=== PATIENT | female | born 1985 | race Caucasian/White ===

== ENCOUNTER 2018-06-28 15:14 | Outpatient (CLI) | payer MEDICARE, MEDICAID | END 2018-06-28 15:15 | disposition critical access hospital (66) | LOC: EMS 15:14 | PROVIDERS: ATTEND Surgery | DX: R45.851 Suicidal ideations (principal) | CPT/HCPCS: A0425; A0429 ==

== ENCOUNTER 2018-06-28 15:34 | Inpatient (IN) | payer MEDICARE, MEDICAID ==
--- NOTE | 2018-06-28 16:01 | ED Physician Documentation ---
PD HPI MHE - Stated complaint Stated Complaint: SI - Chief complaint Chief Complaint: MHE - History obtained from History obtained from: Patient - History of Present Illness Primary symptom: Other (off balance, nausea, weakness, falling) Timing - onset: How many days ago (2-3) Contributing factors: No: Substance abuse - ETOH, Substance abuse - drugs Recently seen: Clinic (saw her psychiatrist earlier in the week and took dose of Risperdal, which she has as PRN, and it helped her psychosis and is feeling better regarding the bipolar. Had seen provider 3 weeks and and started n [place]. She has been taking it regularly.), Emergency Dept (seen at [facility] yesterday with IV fluids and labs. She was some improved with IV fluids. Labs were okay and lithium level was 0.6. Discharged but did not have instructions to hold her meds/lithium dose.) Review of Systems Constitutional: denies: Fever, Chills Nose: denies: Rhinorrhea / runny nose, Congestion Throat: denies: Sore throat Respiratory: denies: Cough GI: reports: Abdominal Pain, Nausea, Diarrhea. denies: Vomiting Musculoskeletal: denies: Neck pain, Back pain Neurologic: reports: Generalized weakness. denies: Focal weakness, Numbness Psychiatric: reports: Depressed, Anxiety. denies: Suicidal, Delusions Endocrine: denies: Weight loss Immunocompromised: denies: Immunocompromised PD PAST MEDICAL HISTORY - Past Medical History Cardiovascular: None Respiratory: None Neuro: Seizure disorder Endocrine/Autoimmune: None GI: None [employer]: None Psych: Anxiety, Bipolar disorder - Past Surgical History Past Surgical History: Yes General: Cholecystectomy - Present Medications Home Medications: Ambulatory Orders Medication Instructions Recorded Confirmed Lorazepam [Ativan] 1 mg PO Q8H #14 tablet 04/17/14 10/08/14 Gabapentin 400 mg PO 06/28/18 Levetiracetam [Keppra] 750 mg PO BID 06/28/18 06/28/18 [place] Carbonate 900 06/28/18 Naltrexone HCl 75 06/28/18 Propranolol [Inderal] 10 mg PO DAILY 06/28/18 06/28/18 Zolpidem Tartrate [Ambien] 10 mg PO 06/28/18 clonazePAM [Clonazepam] 2 mg PO 06/28/18 hydrOXYzine HCl [Hydroxyzine HCl] 10 mg PO PRN 06/28/18 - Allergies Allergies/Adverse Reactions: Allergies Allergy/AdvReac Type Severity Reaction Status Date / Time amitriptyline Allergy Hallucinati Verified 06/28/18 15:43 ons quetiapine [From Seroquel] Allergy Hallucinati Verified 06/28/18 15:43 ons Penicillins AdvReac Unknown Hives Verified 05/02/13 20:19 Sulfa (Sulfonamide AdvReac Unknown Hives Verified 05/02/13 20:19 Antibiotics) Whole grains AdvReac Unknown Uncoded 04/14/14 10:47 - Social History Does the pt smoke?: Yes Smoking Status: Current every day smoker Does the pt drink ETOH?: Yes Does the pt have substance abuse?: Yes - Immunizations Immunizations are current?: Yes Immunizations: TDAP current <10years - POLST Patient has POLST: No PD ED PE NORMAL - Vitals Vital signs reviewed: Yes - General General: Alert and oriented X 3, Well developed/nourished - HEENT HEENT: PERRL, EOMI (mild rotary nystagmus), Pharynx benign. No: Moist mucous membranes - Neck Neck: Supple, no meningeal sign, No adenopathy, No JVD, No bruit - Cardiac Cardiac: RRR, No murmur - Respiratory Respiratory: Clear bilaterally - Abdomen Abdomen: Normal bowel sounds, Soft, Non distended, No organomegaly, Other (mild general tenderness) - Back Back: No CVA TTP - Derm Derm: Normal color, Warm and dry - Extremities Extremities: No tenderness to palpate, Normal ROM s pain, No edema, No calf tenderness / cord - Neuro Neuro: Alert and oriented X 3, No sensory deficit, Normal speech, Other (moderate general weakness, more in legs than arms. ) Results - Vitals Vitals: Vital Signs - 24 hr 06/28/18 15:37 Temperature 36.8 C Heart Rate 85 Blood Pressure 117/76 O2 Saturation 99 Oxygen O2 Source Room air - Labs Labs: Laboratory Tests 06/28/18 06/28/18 06/28/18 15:56 15:56 15:56 WBC 9.6 RBC 3.88 L Hgb 11.3 L Hct 33.1 L MCV 85.2 MCH 29.0 MCHC 34.1 RDW 16.7 H Plt Count 266 MPV 8.3 Neut # (Auto) 5.1 Lymph # (Auto) 3.0 [place] # (Auto) 0.8 Eos # (Auto) 0.7 Baso # (Auto) 0.1 Absolute Nucleated RBC 0.00 Nucleated RBC % 0.0 Sodium 138 Potassium 3.4 L Chloride 107 Carbon Dioxide 23 Anion Gap 8.0 BUN < 5 L Creatinine 0.7 Estimated GFR (MDRD) 96 Glucose 92 Calcium 8.9 Total Bilirubin 0.6 AST 22 ALT 16 Alkaline Phosphatase 74 Total Protein 6.6 L Albumin 3.9 Globulin 2.7 Albumin/Globulin Ratio 1.4 Lipase 44 TSH Urine Color Urine Clarity Urine pH Ur Specific [place] Urine Protein Urine Glucose (UA) Urine Ketones Urine Occult Blood Urine Nitrite Urine Bilirubin Urine Urobilinogen Ur Leukocyte Esterase Ur Microscopic Review Urine Culture Comments Urine HCG, Qual Last Dose Date UNK Last Dose Time UNK Salicylates < 6.0 Urine Opiates Screen Ur Oxycodone Screen Urine Methadone Screen Ur Propoxyphene Screen Acetaminophen < 10 L Ur Barbiturates Screen Ur Tricyclics Screen Ur Phencyclidine Scrn Ur Amphetamine Screen U Methamphetamines Scrn U Benzodiazepines Scrn [place] 0.72 Urine Cocaine Screen U Cannabinoids Screen Ethyl Alcohol < 5.0 06/28/18 06/28/18 06/28/18 15:56 16:10 16:10 WBC RBC Hgb Hct MCV MCH MCHC RDW Plt Count MPV Neut # (Auto) Lymph # (Auto) [place] # (Auto) Eos # (Auto) Baso # (Auto) Absolute Nucleated RBC Nucleated RBC % Sodium Potassium Chloride Carbon Dioxide Anion Gap BUN Creatinine Estimated GFR (MDRD) Glucose Calcium Total Bilirubin AST ALT Alkaline Phosphatase Total Protein Albumin Globulin Albumin/Globulin Ratio Lipase TSH 3.11 Urine Color YELLOW Urine Clarity CLEAR Urine pH 6.0 Ur Specific [place] <=1.005 <=1.005 Urine Protein NEGATIVE Urine Glucose (UA) NEGATIVE Urine Ketones NEGATIVE Urine Occult Blood NEGATIVE Urine Nitrite NEGATIVE Urine Bilirubin NEGATIVE Urine Urobilinogen 0.2 (NORMAL) Ur Leukocyte Esterase NEGATIVE Ur Microscopic Review NOT INDICATED Urine Culture Comments NOT INDICATED Urine HCG, Qual NEGATIVE Last Dose Date Last Dose Time Salicylates Urine Opiates Screen NEGATIVE Ur Oxycodone Screen POSITIVE H Urine Methadone Screen NEGATIVE Ur Propoxyphene Screen NEGATIVE Acetaminophen Ur Barbiturates Screen NEGATIVE Ur Tricyclics Screen NEGATIVE Ur Phencyclidine Scrn NEGATIVE Ur Amphetamine Screen NEGATIVE U Methamphetamines Scrn NEGATIVE U Benzodiazepines Scrn POSITIVE H [place] Urine Cocaine Screen NEGATIVE U Cannabinoids Screen NEGATIVE Ethyl Alcohol PD MEDICAL DECISION MAKING - ED course Complexity details: reviewed results (her lithium level is in normal range, but is higher than at [facility] yesterday, so accounts for worse symptoms today.), re- evaluated patient (Feeling a little bit better with IV fluids but still he is having general weakness and nausea and has weakness of enough that she is having difficulty standing or walking. Her symptoms seem consistent with lithium toxicity. The symptoms certainly can compound with other medications that she takes but the lithium for the past 3 weeks is the new kid on the block and presumably is accounting for her symptoms.), considered differential (Sounds like medication side effects. Has been on lithium for 3 weeks, and also had added dose of psych meds earlier this week. Other meds the same. Symptoms c/w lithium toxicity. My concern is that she is weak and off balance, and fell with even walking to bathroom, with multiple falls today per dad. Her lithium level is .72 and yesterday was .6 at [facility] (was not told to hold her med so took it as usual last night). This not typical toxic level, but can be symptoms combined with other meds. I feel she needs hydration and off meds for a day and see if improved, then resume lower dose currently 900 mg bid). ), d/w patient - Sepsis Event Vital Signs: Vital Signs - 24 hr 06/28/18 15:37 Temperature 36.8 C Heart Rate 85 Blood Pressure 117/76 O2 Saturation 99 Oxygen O2 Source Room air Departure - Departure Disposition: ED Place in Observation Clinical Impression: Falling episodes, Seizure disorder [place] toxicity Qualifiers: Encounter type: initial encounter Injury intent: accidental or unintentional Qualified Code(s): T56.891A - Toxic effect of other metals, accidental (unintentional), initial encounter Bipolar disorder Qualifiers: Active/Remission status: in full remission Most recent bipolar episode type: mixed Qualified Code(s): F31.78 - Bipolar disorder, in full remission, most recent episode mixed Condition: Stable Record reviewed to determine appropriate education?: Yes Discharge Date/Time: 06/28/18 19:36
[2018-06-28 16:02] LABS: BASOPHILS # (AUTO) 0.1 10^3/uL (0.0-0.1); BASOPHILS % (AUTO) 0.7 %; EOSINOPHILS # (AUTO) 0.7 10^3/uL (0.0-0.7); EOSINOPHILS % (AUTO) 7.5 %; HGB - HEMOGLOBIN 11.3 g/dL (12.0-16.0); MEAN CORPUSCULAR HGB CONC 34.1 g/dL (32.0-36.0); MEAN CORPUSCULAR VOLUME 85.2 fL (81.0-99.0); MEAN PLATELET VOLUME 8.3 fL (7.9-10.8); MONOCYTES # (AUTO) 0.8 10^3/uL (0.0-1.0); MONOCYTES % (AUTO) 7.9 %; NEUTROPHILS # (AUTO) 5.1 10^3/uL (1.5-6.6); NEUTROPHILS % (AUTO) 52.9 %; PLT - PLATELET COUNT 266 10^3/uL (130-450); RED BLOOD COUNT 3.88 10^6/uL (4.20-5.40); RED CELL DISTRIBUTION WIDTH 16.7 % (12.0-15.0); WHITE BLOOD COUNT 9.6 x10^3/uL (4.8-10.8)
[2018-06-28 16:16] LABS: MUDS CUTOFF CONCENTRATIONS CUTOFF CONC BELOW:
[2018-06-28 16:18] LABS: BILIRUBIN,URINE NEGATIVE (NEGATIVE); GLUCOSE, URINE (UA) NEGATIVE (NEGATIVE); KETONES,URINE (UA) NEGATIVE (NEGATIVE); LEUKOCYTE ESTERASE, URINE NEGATIVE (NEGATIVE); NITRITE,URINE NEGATIVE (NEGATIVE); OCCULT BLOOD,URINE NEGATIVE (NEGATIVE); PROTEIN,URINE NEGATIVE (NEGATIVE); UROBILINOGEN,URINE 0.2 (NORMAL) E.U./dL (NORMAL)
[2018-06-28 16:18] LABS: ALBUMIN 3.9 g/dL (3.2-5.5); ALBUMIN/GLOBULIN RATIO 1.4 (1.0-2.2); ALKALINE PHOSPHATASE 74 IU/L (42-121); ALT ALANINE AMINOTRANSFERASE 16 IU/L (10-60); AST ASPARTATE AMINOTRANSFERASE 22 IU/L (10-42); BILIRUBIN,TOTAL 0.6 mg/dL (0.2-1.0); BUN - BLOOD UREA NITROGEN < 5 mg/dL (6-20); CALCIUM 8.9 mg/dL (8.5-10.3); CARBON DIOXIDE - CO2 23 mmol/L (21-32); CHLORIDE 107 mmol/L (101-111); CREATININE 0.7 mg/dL (0.4-1.0); GFR - MDRD 96 (>89); GLUCOSE 92 mg/dL (70-100); LIPASE 44 U/L (22-51); SALICYLATE < 6.0 mg/dL; SODIUM 138 mmol/L (135-145); TOTAL PROTEIN 6.6 g/dL (6.7-8.2)
[2018-06-28 16:19] LABS: LITHIUM 0.72 mmol/L
[2018-06-28 16:20] LABS: ACETAMINOPHEN < 10 ug/mL (10-30)
[2018-06-28 16:30] LABS: CLARITY,URINE CLEAR (CLEAR)
[2018-06-28 16:31] LABS: AMPHETAMINE SCREEN,URINE NEGATIVE (NEGATIVE); BENZODIAZEPINES SCREEN, URINE POSITIVE (NEGATIVE); COCAINE SCREEN URINE NEGATIVE (NEGATIVE); METHADONE SCREEN, URINE NEGATIVE (NEGATIVE); METHAMPHETAMINES SCREEN, URINE NEGATIVE (NEGATIVE); OPIATE SCREEN, URINE NEGATIVE (NEGATIVE); OXYCODONE SCREEN, URINE POSITIVE (NEGATIVE); PROPOXYPHENE SCREEN, URINE NEGATIVE (NEGATIVE); TRICYCLIC ANTIDEPRESSANT,URINE NEGATIVE (NEGATIVE)
[2018-06-28] MEDS ORDERED: SODIUM CHLORIDE 0.9% 1,000 ML IV ONE (16:48)
[2018-06-28] MEDS ORDERED: ONDANSETRON 4 MG/2 ML VIAL IVP PRN (18:10)
[2018-06-28] MEDS ORDERED: PROCHLORPERAZINE 10 MG/2 ML VIAL IVP PRN (18:10)
[2018-06-28] MEDS ORDERED: PROMETHAZINE 25 MG/1 ML VIAL IM PRN (18:10)
[2018-06-28] MEDS ORDERED: SODIUM CHLORIDE FLUSH 0.9% 10 ML SYRINGE IVP PRN (18:10)
--- NOTE | 2018-06-28 18:45 | HISTORY & PHYSICAL EXAMINATION ---
Chief Complaint - Chief Complaint Chief Complaint: Falls History of Present Illness - Admitted From Admitted From:: Emergency department - History Obtained From Records Reviewed: Yes History obtained from: Patient and patient's father Exam Limitations: None - History of Present Illness HPI Comment/Other: Patient is a 33-year-old female with a past medical history significant for PTSD, ADHD, unspecified mood disorder and kidney stones who presents to the emergency department with 4 days of increasing falls. According to the patient and her father the patient's symptoms began 4 days ago when she began having increasing lethargy and unsteady gait. The patient states that she had been experiencing increasing episode of psychosis where she was having auditory hallucinations. She saw her psychiatrist just 4 days ago and at that time she had her lithium dose increased and was put on a higher dose of Risperdal as well as propanolol. She states that she is noticed that she began having increasing lethargy and unsteady gait after increasing these doses. The patient states that over the last 2 days she has been having multiple falls. She states that her father has caught her many of the times but over the last 2 days she has had at least 50 falls. She states that this is because she just cannot walk in a straight line and her balance seems to be off. The patient does also complain of pain in her neck over the last few days she is unsure if this was due to a fall or if it started before a fall. The patient states that over the last 3 months she has been having an gradual increase in her lithium dose due to increasing symptoms of psychosis. The patient states that currently she is not having any symptoms of psychosis but just feels like she can barely stay awake. Yesterday the patient did go to the emergency department at [facility] in [place] and was observed there. The patient was given IV fluids and was thought to have too much psych medication on board and seems to be doing better therefore where she was discharged home. Patient states that she took her normal doses of her psychiatric medication this morning and now his continue to have the symptoms. In the emergency department the patient states that she fell on her way to the bathroom and does not feel safe to go home. She states that she is worried that she is a danger to herself and her family if she continues to fall. The patient denies any suicidal ideations or any current visual or auditory hallucinations. Patient denies any headaches, blurred vision, runny nose, sore throat, nasal congestion, difficulty swallowing, chest pain, cough, fever, chills, shortness of breath, orthopnea, PND, increased lower extremity swelling, abdominal pain, nausea, vomiting, diarrhea, urinary urgency, urinary frequency, dysuria, joint pain, joint swelling, back pain, hair loss, skin rash, skin changes, polyuria, polydipsia, recent unintentional weight loss, changes in appetite, or any focal neurologic deficits. On presentation to the emergency department the patient was afebrile and all vital signs were stable. Patient underwent routine lab work which showed a slight hypokalemia but otherwise were normal. The patient's urinalysis was negative. The patient's U tox did show positive for oxycodone and benzodia zepines. The patient's lithium level was 0.72 which was in the therapeutic range. Given the patient's ongoing symptoms and her being unsafe to go home she was placed in observation for IV fluids and monitoring. History - Past Medical History Neuro: reports: Seizure disorder : reports: Kidney stones Psych: reports: Anxiety, Bipolar disorder, ADD/ADHD, Post traumatic stress disor mario, Other (Unspecified mood disorder) MRSA Hx?: No - Past Surgical History General: reports: Cholecystectomy - Family & Social History Family History: Mother: Alive and Well, Cancer (Endometrial cancer), Mental Illness (Depression), Father: Alive and Well Living arrangement: At home Living Situation: With family Social History Notes: The patient lives in [place] with her parents. She recently broke up with her fianc and her parents have taken her in. She does not have any children and she does not have a job. She does not go to school. She was previously a heavy smoker smoking 2 packs a day but has been slowly cutting down and is down to just 2 cigarettes a day. She has been smoking since her teen years. The patient was also a heavy drinker but has been sober now for 5 months. She denies any illicit drug use. - POLST Patient has POLST: No POLST Status: Full Code Meds/Allgy - Home Medications Home Medications: Ambulatory Orders Medication Instructions Recorded Confirmed Lorazepam [Ativan] 1 mg PO Q8H #14 tablet 04/17/14 10/08/14 Gabapentin 400 mg PO 06/28/18 Levetiracetam [Keppra] 750 mg PO BID 06/28/18 06/28/18 [place] Carbonate 900 06/28/18 Naltrexone HCl 75 06/28/18 Propranolol [Inderal] 10 mg PO DAILY 06/28/18 06/28/18 Zolpidem Tartrate [Ambien] 10 mg PO 06/28/18 clonazePAM [Clonazepam] 2 mg PO 06/28/18 hydrOXYzine HCl [Hydroxyzine HCl] 10 mg PO PRN 06/28/18 - Allergies Allergies/Adverse Reactions: Allergies Allergy/AdvReac Type Severity Reaction Status Date / Time amitriptyline Allergy Hallucinati Verified 06/28/18 15:43 ons quetiapine [From Seroquel] Allergy Hallucinati Verified 06/28/18 15:43 ons Penicillins AdvReac Unknown Hives Verified 05/02/13 20:19 Sulfa (Sulfonamide AdvReac Unknown Hives Verified 05/02/13 20:19 Antibiotics) Whole grains AdvReac Unknown Uncoded 04/14/14 10:47 Review of Systems - Other Findings Other Findings: A comprehensive review of systems was performed the pertinent positives and negatives are stated above in the HPI and the remainder of the review of systems is negative. Prior Level of Functionality: Patient is independent with all her activities of daily living. Exam - Vital Signs Reviewed Vital Signs: Yes Vital Signs: Vital Signs x48h Temp Pulse BP Pulse Ox 06/28/18 15:37 36.8 C 85 117/76 99 - Physical Exam General Appearance: positive: No acute distress, Other (Very drowsy and lethargic. She falls asleep at times when being asked questions. She cannot move her neck from side to side appears to have spasms.) Eyes Bilateral: positive: Normal inspection, PERRL, EOMI, No lid inflammation, Conjunctivae nml, No scleral icterus ENT: positive: ENT inspection nml, Pharynx nml, No signs of dehydration. negative: Purulent nasal drainage, Pharyngeal erythema, Oral lesions Neck: positive: Nml inspection, Thyroid nml, No JVD, Trachea midline, Stiff neck. negative: Thyromegaly, Lymphadenopathy (R), Lymphadenopathy (L), Carotid bruit Respiratory: positive: Chest non-tender, No respiratory distress, Breath sounds nml. negative: Wheezes, Rales, Rhonchi Cardiovascular: positive: Regular rate & rhythm, No murmur, No gallop Peripheral Pulses: positive: 2+ Abdomen: positive: Non-tender, No organomegaly, Nml bowel sounds, No distention. negative: Guarding, Rebound, Hepatomegaly Back: positive: Nml inspection. negative: CVA tenderness (R), CVA tenderness (L) Skin: positive: Color nml, No rash, Warm, Dry. negative: Cyanosis, Diaphoresis, Pallor Extremities: positive: Non-tender, Full ROM, Nml appearance, No pedal edema Neurologic/Psychiatric: positive: Oriented x3, CN's nml (2-12), Motor nml, Sensation nml, Mood/affect nml, Other (Drowsy) Conclusion/Plan - Problem List (1) Falling episodes Conclusion/Plan: Patient has been having multiple falls according to her 49 in the last 2 days. She is lethargic and has an unsteady gait. It appears this is due to oversedation from her psychiatric medications. The patient had her doses of lithium, Risperdal and propranolol all increased about 4 days ago at which time she began having the symptoms and they have been worsening over the last 2 days. Currently the patient is unsafe to go home due to inability to walk even to the bathroom without falling. The patient is being placed in observation for IV flu ids and monitoring of symptoms. 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 The patient however appears to be lethargic due to her psychiatric medications. For now we will hold the patient's Risperdal, propranolol and lithium. We will continue the patient's clonazepam which she has been taking chronically. Once patient's mentation is improved we will then restart the lithium at a lower dose. The patient will need to follow- up with her psychiatrist for further adjustment of her doses. (3) Neck muscle spasm Conclusion/Plan: Patient appears to have spasm of her neck. This is likely secondary to 1 of the multiple falls that she suffered over the last 2 days. The patient will be given a heating pad for her neck and Toradol IV. We will consider a muscle relaxant if the patient's more alert tomorrow. (4) Seizure disorder Conclusion/Plan: Patient has a history of seizure disorder and is on Keppra. We will continue the patient's home dose of Keppra. The patient is also on gabapentin for seizure disorder which we will also continue. - Lab Results Lab results reviewed: Yes Fish Bones: 06/28/18 15:56 06/28/18 15:56 Other Lab Results: Laboratory Results WBC 9.6 x10^3/uL (4.8-10.8) 06/28/18 15:56 RBC 3.88 10^6/uL (4.20-5.40) L 06/28/18 15:56 Hgb 11.3 g/dL (12.0-16.0) L 06/28/18 15:56 Hct 33.1 % (37.0-47.0) L 06/28/18 15:56 MCV 85.2 fL (81.0-99.0) 06/28/18 15:56 MCH 29.0 pg (27.0-31.0) 06/28/18 15:56 MCHC 34.1 g/dL (32.0-36.0) 06/28/18 15:56 RDW 16.7 % (12.0-15.0) H 06/28/18 15:56 Plt Count 266 10^3/uL (130-450) 06/28/18 15:56 MPV 8.3 fL (7.9-10.8) 06/28/18 15:56 Neut # (Auto) 5.1 10^3/uL (1.5-6.6) 06/28/18 15:56 Lymph # (Auto) 3.0 10^3/uL (1.5-3.5) 06/28/18 15:56 [place] # (Auto) 0.8 10^3/uL (0.0-1.0) 06/28/18 15:56 Eos # (Auto) 0.7 10^3/uL (0.0-0.7) 06/28/18 15:56 Baso # (Auto) 0.1 10^3/uL (0.0-0.1) 06/28/18 15:56 Absolute Nucleated RBC 0.00 x10^3/uL 06/28/18 15:56 Nucleated RBC % 0.0 /100WBC 06/28/18 15:56 Sodium 138 mmol/L (135-145) 06/28/18 15:56 Potassium 3.4 mmol/L (3.5-5.0) L 06/28/18 15:56 Chloride 107 mmol/L (101-111) 06/28/18 15:56 Carbon Dioxide 23 mmol/L (21-32) 06/28/18 15:56 Anion Gap 8.0 (6-13) 06/28/18 15:56 BUN < 5 mg/dL (6-20) L 06/28/18 15:56 Creatinine 0.7 mg/dL (0.4-1.0) 06/28/18 15:56 Estimated GFR (MDRD) 96 (>89) 06/28/18 15:56 Glucose 92 mg/dL (70-100) 06/28/18 15:56 Calcium 8.9 mg/dL (8.5-10.3) 06/28/18 15:56 Total Bilirubin 0.6 mg/dL (0.2-1.0) 06/28/18 15:56 AST 22 IU/L (10-42) 06/28/18 15:56 ALT 16 IU/L (10-60) 06/28/18 15:56 Alkaline Phosphatase 74 IU/L (42-121) 06/28/18 15:56 Total Protein 6.6 g/dL (6.7-8.2) L 06/28/18 15:56 Albumin 3.9 g/dL (3.2-5.5) 06/28/18 15:56 Globulin 2.7 g/dL (2.1-4.2) 06/28/18 15:56 Albumin/Globulin Ratio 1.4 (1.0-2.2) 06/28/18 15:56 Lipase 44 U/L (22-51) 06/28/18 15:56 TSH 3.11 uIU/mL (0.34-5.60) 06/28/18 15:56 Urine Color YELLOW 06/28/18 16:10 Urine Clarity CLEAR (CLEAR) 06/28/18 16:10 Urine pH 6.0 PH (5.0-7.5) 06/28/18 16:10 Ur Specific [place] <=1.005 (1.002-1.030) 06/28/18 16:10 Urine Protein NEGATIVE mg/dL (NEGATIVE) 06/28/18 16:10 Urine Glucose (UA) NEGATIVE mg/dL (NEGATIVE) 06/28/18 16:10 Urine Ketones NEGATIVE mg/dL (NEGATIVE) 06/28/18 16:10 Urine Occult Blood NEGATIVE (NEGATIVE) 06/28/18 16:10 Urine Nitrite NEGATIVE (NEGATIVE) 06/28/18 16:10 Urine Bilirubin NEGATIVE (NEGATIVE) 06/28/18 16:10 Urine Urobilinogen 0.2 (NORMAL) E.U./dL (NORMAL) 06/28/18 16:10 Ur Leukocyte Esterase NEGATIVE (NEGATIVE) 06/28/18 16:10 Ur Microscopic Review NOT INDICATED 06/28/18 16:10 Urine Culture Comments NOT INDICATED 06/28/18 16:10 Last Dose Date UNK 06/28/18 15:56 Last Dose Time UNK 06/28/18 15:56 Salicylates < 6.0 mg/dL 06/28/18 15:56 Urine Opiates Screen NEGATIVE (NEGATIVE) 06/28/18 16:10 Ur Oxycodone Screen POSITIVE (NEGATIVE) H 06/28/18 16:10 Urine Methadone Screen NEGATIVE (NEGATIVE) 06/28/18 16:10 Ur Propoxyphene Screen NEGATIVE (NEGATIVE) 06/28/18 16:10 Acetaminophen < 10 ug/mL (10-30) L 06/28/18 15:56 Ur Barbiturates Screen NEGATIVE (NEGATIVE) 06/28/18 16:10 Ur Tricyclics Screen NEGATIVE (NEGATIVE) 06/28/18 16:10 Ur Phencyclidine Scrn NEGATIVE (NEGATIVE) 06/28/18 16:10 Ur Amphetamine Screen NEGATIVE (NEGATIVE) 06/28/18 16:10 U Methamphetamines Scrn NEGATIVE (NEGATIVE) 06/28/18 16:10 U Benzodiazepines Scrn POSITIVE (NEGATIVE) H 06/28/18 16:10 [place] 0.72 mmol/L 06/28/18 15:56 Urine Cocaine Screen NEGATIVE (NEGATIVE) 06/28/18 16:10 U Cannabinoids Screen NEGATIVE (NEGATIVE) 06/28/18 16:10 Ethyl Alcohol < 5.0 mg/dL 06/28/18 15:56 - Diagnostic Imaging Results Diagnostic Imaging Results: positive: Final report reviewed Core Measures - Anticipated LOS I expect patient to be DC'd or transferred within 96 hours.: Yes - DVT/VTE - Prophylaxis VTE/DVT Prophylaxis med ordered at admit?: Yes
[2018-06-28] MEDS: SODIUM CHLORIDE 0.9% 1,000 ML IV SCH (19:49)
[2018-06-28] MEDS: KETOROLAC 30 MG/ML VIAL IVP PRN (19:49)
[2018-06-28] MEDS: clonazePAM 0.5 MG TABLET PO SCH (19:51)
[2018-06-28] MEDS: levETIRAcetam 250 MG TABLET PO SCH (20:17)
[2018-06-28 21:21] LABS: HCG UR QUAL NEGATIVE
[2018-06-29] MEDS: KETOROLAC 30 MG/ML VIAL IVP PRN ×3 (02:26→19:00)
[2018-06-29] MEDS: SODIUM CHLORIDE FLUSH 0.9% 10 ML SYRINGE IVP SCH ×3 (02:26→15:43)
[2018-06-29] MEDS: NICOTINE 14 MG PATCH TOP SCH ×2 (02:27→09:21)
[2018-06-29] MEDS: SODIUM CHLORIDE 0.9% 1,000 ML IV SCH ×2 (06:11→15:42)
[2018-06-29 06:43] LABS: BASOPHILS # (AUTO) 0.1 10^3/uL (0.0-0.1); BASOPHILS % (AUTO) 0.7 %; EOSINOPHILS # (AUTO) 0.8 10^3/uL (0.0-0.7); EOSINOPHILS % (AUTO) 9.1 %; LYMPHOCYTES % (AUTO) 46.4 %; MEAN CORPUSCULAR HEMOGLOBIN 29.4 pg (27.0-31.0); MEAN CORPUSCULAR HGB CONC 34.1 g/dL (32.0-36.0); MEAN CORPUSCULAR VOLUME 86.1 fL (81.0-99.0); MEAN PLATELET VOLUME 8.2 fL (7.9-10.8); MONOCYTES # (AUTO) 0.7 10^3/uL (0.0-1.0); MONOCYTES % (AUTO) 7.9 %; NEUTROPHILS # (AUTO) 3.1 10^3/uL (1.5-6.6); NEUTROPHILS % (AUTO) 35.9 %; PLT - PLATELET COUNT 236 10^3/uL (130-450); RED BLOOD COUNT 3.75 10^6/uL (4.20-5.40); WHITE BLOOD COUNT 8.5 x10^3/uL (4.8-10.8)
[2018-06-29 06:57] LABS: ALBUMIN 3.3 g/dL (3.2-5.5); ALBUMIN/GLOBULIN RATIO 1.4 (1.0-2.2); BILIRUBIN,TOTAL 0.6 mg/dL (0.2-1.0); CALCIUM 8.7 mg/dL (8.5-10.3); CREATININE 0.6 mg/dL (0.4-1.0); MAGNESIUM 1.9 mg/dL (1.7-2.8); TOTAL PROTEIN 5.7 g/dL (6.7-8.2)
[2018-06-29] MEDS ORDERED: NICOTINE 14 MG PATCH TOP SCH (09:00)
[2018-06-29] MEDS: levETIRAcetam 250 MG TABLET PO SCH ×2 (09:20→22:49)
[2018-06-29] MEDS: clonazePAM 0.5 MG TABLET PO SCH (09:21)
[2018-06-29] MEDS: FAMOTIDINE 20 MG TABLET PO SCH (09:21)
[2018-06-29] MEDS: POLYETHYLENE GLYCOL 3350 17 GM PACKET PO SCH (09:33)
[2018-06-29] MEDS: ENOXAPARIN 40 MG/0.4 ML SYRINGE SUBQ SCH (09:33)
[2018-06-29 10:21] LABS: LITHIUM 0.38 mmol/L
[2018-06-29] MEDS: CETIRIZINE 10 MG TABLET PO SCH (11:56)
--- NOTE | 2018-06-29 16:27 | PROVIDER PROGRESS NOTE ---
Assessment/Plan - Problem List (1) Lethargy Assessment/Plan: Pt still very weak, and somnolent. Continue supportive care with iv fluids, stand by assist up. PT to start today (she needed a walker to ambulate). (2) Falling episodes Assessment/Plan: CK is mildly elevated, she may have developed rhabdo from the many falls. Will monitor CK, renal function and continue iv fluids. (3) Bipolar disorder Qualifiers: Active/Remission status: in full remission Most recent bipolar episode type: mixed Qualified Code(s): F31.78 - Bipolar disorder, in full remission, most recent episode mixed Assessment/Plan: Patient Li is expected to decrease to help obtundation. Psych eval by social worker masters showed stable mood. - Current Meds Current Meds: Current Medications Generic Name Dose Route Start Last Admin Trade Name Freq PRN Reason Stop Dose Admin Cetirizine HCl 10 mg 06/29/18 10:00 06/29/18 11:56 Zyrtec PO 10 mg DAILY UNRULY Administration Clonazepam 2 mg 06/28/18 19:00 06/29/18 09:21 Klonopin PO 2 mg DAILY UNRULY Administration Enoxaparin Sodium 40 mg 06/29/18 09:00 06/29/18 09:33 Lovenox SUBQ 40 mg DAILY UNRULY Administration Famotidine 20 mg 06/29/18 09:00 06/29/18 09:21 Pepcid PO 20 mg DAILY UNRULY Administration Sodium Chloride 1,000 mls @ 100 mls/hr 06/28/18 19:00 06/29/18 15:42 Normal Saline 0.9% IV 100 mls/hr .Q10H UNRULY Administration Ketorolac Tromethamine 30 mg 06/28/18 18:10 06/29/18 09:21 Toradol Inj (30mg) IVP 07/03/18 18:09 30 mg Q6HR PRN Administration PAIN Levetiracetam 750 mg 06/28/18 21:00 06/29/18 09:20 Keppra PO 750 mg BID UNRULY Administration Nicotine 1 patch 06/29/18 02:02 06/29/18 09:21 Nicoderm TOP 1 patch DAILY UNRULY Administration Polyethylene Glycol 17 gm 06/29/18 09:00 06/29/18 09:33 Miralax PO Not Given DAILY UNRULY Sodium Chloride 10 ml 06/28/18 18:10 06/28/18 19:49 Normal Saline Flush 0.9% IVP 10 ml PRN PRN Administration NEEDED PER PROVIDER ORDERS Sodium Chloride 10 ml 06/29/18 01:00 06/29/18 15:43 Normal Saline Flush 0.9% IVP Not Given 0100,0900,1700 UNRULY - Lab Result Fish Bone Diagrams: 06/29/18 06:31 06/29/18 06:31 - Additional Planning My Orders: My Active Orders 06/29/18 10:00 Cetirizine [ZyrTEC] 10 mg PO DAILY 06/29/18 16:22 Transfer [Admit \ Transfer \ Status] [RC] .ONCE Subjective - Subjective Patient Reports: Other (Sleeping all am, sleeping after lunch) Nursing Reports: Other (was awake for 1 hour, walked with PT and needed a quad walker) Objective Vital Signs: Vital Signs - 24 hr 06/28/18 06/28/18 06/29/18 19:45 23:40 04:05 Temperature 37.2 C 37.0 C 36.8 C Heart Rate [ 81 81 83 Brachial] Heart Rate [ Sitting] Respiratory 16 16 16 Rate Blood Pressure 128/76 120/78 117/77 [Brachial artery] Blood Pressure [Sitting] O2 Saturation 100 100 98 06/29/18 06/29/18 06/29/18 07:24 12:12 12:25 Temperature 37 C 37.2 C Heart Rate [ 78 87 Brachial] Heart Rate [ 84 Sitting] Respiratory 16 16 Rate Blood Pressure 111/69 112/84 H [Brachial artery] Blood Pressure 120/80 [Sitting] O2 Saturation 98 97 Oxygen O2 Source Room air I&O (Last 24 Hrs): Intake and Output Totals x24h 06/27/18 06/28/18 06/29/18 23:59 23:59 23:59 Intake Total 1350 3725.000 Output Total 200 Balance 1350 3525.000 General: Other (Somnolent) HEENT: Mucous membr. moist/pink Neck: Supple Neuro: Other (Slurred slow speech) Cardiovascular: Regular rate, No murmurs Respiratory: No respiratory distress, Breath sounds nml Extremities: No edema - Results Results: Laboratory Results WBC 8.5 x10^3/uL (4.8-10.8) 06/29/18 06:31 RBC 3.75 10^6/uL (4.20-5.40) L 06/29/18 06:31 Hgb 11.0 g/dL (12.0-16.0) L 06/29/18 06:31 Hct 32.3 % (37.0-47.0) L 06/29/18 06:31 MCV 86.1 fL (81.0-99.0) 06/29/18 06:31 MCH 29.4 pg (27.0-31.0) 06/29/18 06:31 MCHC 34.1 g/dL (32.0-36.0) 06/29/18 06:31 RDW 17.0 % (12.0-15.0) H 06/29/18 06:31 Plt Count 236 10^3/uL (130-450) 06/29/18 06:31 MPV 8.2 fL (7.9-10.8) 06/29/18 06:31 Neut # (Auto) 3.1 10^3/uL (1.5-6.6) 06/29/18 06:31 Lymph # (Auto) 4.0 10^3/uL (1.5-3.5) H 06/29/18 06:31 [place] # (Auto) 0.7 10^3/uL (0.0-1.0) 06/29/18 06:31 Eos # (Auto) 0.8 10^3/uL (0.0-0.7) H 06/29/18 06:31 Baso # (Auto) 0.1 10^3/uL (0.0-0.1) 06/29/18 06:31 Absolute Nucleated RBC 0.01 x10^3/uL 06/29/18 06:31 Nucleated RBC % 0.1 /100WBC 06/29/18 06:31 Sodium 142 mmol/L (135-145) 06/29/18 06:31 Potassium 3.6 mmol/L (3.5-5.0) 06/29/18 06:31 Chloride 110 mmol/L (101-111) 06/29/18 06:31 Carbon Dioxide 24 mmol/L (21-32) 06/29/18 06:31 Anion Gap 8.0 (6-13) 06/29/18 06:31 BUN 5 mg/dL (6-20) L 06/29/18 06:31 Creatinine 0.6 mg/dL (0.4-1.0) 06/29/18 06:31 Estimated GFR (MDRD) 114 (>89) 06/29/18 06:31 Glucose 111 mg/dL (70-100) H 06/29/18 06:31 Lactic Acid 0.7 mmol/L (0.5-2.2) 06/29/18 06:31 Calcium 8.7 mg/dL (8.5-10.3) 06/29/18 06:31 Phosphorus 5.0 mg/dL (2.5-4.6) H 06/29/18 06:31 Magnesium 1.9 mg/dL (1.7-2.8) 06/29/18 06:31 Total Bilirubin 0.6 mg/dL (0.2-1.0) 06/29/18 06:31 AST 21 IU/L (10-42) 06/29/18 06:31 ALT 14 IU/L (10-60) 06/29/18 06:31 Alkaline Phosphatase 65 IU/L (42-121) 06/29/18 06:31 Total Creatine Kinase 407 IU/L (22-269) H 06/29/18 06:31 Total Protein 5.7 g/dL (6.7-8.2) L 06/29/18 06:31 Albumin 3.3 g/dL (3.2-5.5) 06/29/18 06:31 Globulin 2.4 g/dL (2.1-4.2) 06/29/18 06:31 Albumin/Globulin Ratio 1.4 (1.0-2.2) 06/29/18 06:31 Lipase 44 U/L (22-51) 06/28/18 15:56 TSH 3.11 uIU/mL (0.34-5.60) 06/28/18 15:56 Urine Color YELLOW 06/28/18 16:10 Urine Clarity CLEAR (CLEAR) 06/28/18 16:10 Urine pH 6.0 PH (5.0-7.5) 06/28/18 16:10 Ur Specific [place] <=1.005 (1.002-1.030) 06/28/18 16:10 Urine Protein NEGATIVE mg/dL (NEGATIVE) 06/28/18 16:10 Urine Glucose (UA) NEGATIVE mg/dL (NEGATIVE) 06/28/18 16:10 Urine Ketones NEGATIVE mg/dL (NEGATIVE) 06/28/18 16:10 Urine Occult Blood NEGATIVE (NEGATIVE) 06/28/18 16:10 Urine Nitrite NEGATIVE (NEGATIVE) 06/28/18 16:10 Urine Bilirubin NEGATIVE (NEGATIVE) 06/28/18 16:10 Urine Urobilinogen 0.2 (NORMAL) E.U./dL (NORMAL) 06/28/18 16:10 Ur Leukocyte Esterase NEGATIVE (NEGATIVE) 06/28/18 16:10 Ur Microscopic Review NOT INDICATED 06/28/18 16:10 Urine Culture Comments NOT INDICATED 06/28/18 16:10 Urine HCG, Qual NEGATIVE 06/28/18 16:10 Last Dose Date Unknown 06/29/18 09:05 Last Dose Time Unknown 06/29/18 09:05 Salicylates < 6.0 mg/dL 06/28/18 15:56 Urine Opiates Screen NEGATIVE (NEGATIVE) 06/28/18 16:10 Ur Oxycodone Screen POSITIVE (NEGATIVE) H 06/28/18 16:10 Urine Methadone Screen NEGATIVE (NEGATIVE) 06/28/18 16:10 Ur Propoxyphene Screen NEGATIVE (NEGATIVE) 06/28/18 16:10 Acetaminophen < 10 ug/mL (10-30) L 06/28/18 15:56 Ur Barbiturates Screen NEGATIVE (NEGATIVE) 06/28/18 16:10 Ur Tricyclics Screen NEGATIVE (NEGATIVE) 06/28/18 16:10 Ur Phencyclidine Scrn NEGATIVE (NEGATIVE) 06/28/18 16:10 Ur Amphetamine Screen NEGATIVE (NEGATIVE) 06/28/18 16:10 U Methamphetamines Scrn NEGATIVE (NEGATIVE) 06/28/18 16:10 U Benzodiazepines Scrn POSITIVE (NEGATIVE) H 06/28/18 16:10 [place] 0.38 mmol/L 06/29/18 09:05 Urine Cocaine Screen NEGATIVE (NEGATIVE) 06/28/18 16:10 U Cannabinoids Screen NEGATIVE (NEGATIVE) 06/28/18 16:10 Ethyl Alcohol < 5.0 mg/dL 06/28/18 15:56
[2018-06-29] MEDS ORDERED: traZODone 50 MG TABLET PO SCH (21:00)
[2018-06-29] MEDS: GABAPENTIN 400 MG CAPSULE PO SCH (22:50)
[2018-06-30] MEDS: KETOROLAC 30 MG/ML VIAL IVP PRN ×2 (00:48→08:53)
[2018-06-30] MEDS: SODIUM CHLORIDE FLUSH 0.9% 10 ML SYRINGE IVP SCH ×2 (00:48→08:55)
[2018-06-30] MEDS: SODIUM CHLORIDE 0.9% 1,000 ML IV SCH (00:58)
[2018-06-30] MEDS: GABAPENTIN 400 MG CAPSULE PO SCH (05:59)
[2018-06-30 08:50] VITALS: BP 118/74
[2018-06-30] MEDS: ENOXAPARIN 40 MG/0.4 ML SYRINGE SUBQ SCH (08:53)
[2018-06-30] MEDS: levETIRAcetam 250 MG TABLET PO SCH (08:53)
[2018-06-30] MEDS: clonazePAM 0.5 MG TABLET PO SCH (08:53)
[2018-06-30] MEDS: FAMOTIDINE 20 MG TABLET PO SCH (08:53)
[2018-06-30] MEDS: POLYETHYLENE GLYCOL 3350 17 GM PACKET PO SCH (08:53)
[2018-06-30] MEDS: NICOTINE 14 MG PATCH TOP SCH (08:54)
[2018-06-30] MEDS: CETIRIZINE 10 MG TABLET PO SCH (08:55)
[2018-06-30 09:29] LABS: ALBUMIN 3.3 g/dL (3.2-5.5); ALBUMIN/GLOBULIN RATIO 1.2 (1.0-2.2); BILIRUBIN,TOTAL 0.4 mg/dL (0.2-1.0); CALCIUM 8.8 mg/dL (8.5-10.3); CREATININE 0.6 mg/dL (0.4-1.0)
--- NOTE | 2018-06-30 10:52 | Discharge Plan ---
Discharge Plan Disposition: 01 Home, Self Care Condition: Stable Diet: Regular Activity Restrictions: Activity as Tolerated Shower Restrictions: No Driving Restrictions: Yes (No resumption of driving until cleared by PCP) Assistance Devices: Walker Instruction Topics: Rhabdomyolysis, Falls Risks Prevent Additional Instructions or Follow Up instructions: You were admitted due to lethargy and weakness from over-sedation leading to frequent falls. You may not drive a vehicle or operate heavy machinery until cleared to do so by your doctor. The recently increased doses of [place], Resperdal and Propranolol added to the weakness and lethargy, along with narcotic pain medication use. You should see your mental health provider JULIO, to adjust the doses of those meds. Please resume the lower dose of [place] and Resperdal and Propranolol that you were on BEFORE they were increased. The frequent falls that you had led to a condition called Rhabdomyolysis, which is a breakdown of muscle from the trauma. You had a mild form. Please drink plenty of fluids to help your kidneys continue to clear out the muscle breakdown products. Please see your PCP in 5-7 days in follow-up and to determine if you need outpatient Physical Therapy. A walker was provided for you to use as of this admission. Return to the ER if you have new or worsening symptoms. Follow-Up Care: Outpatient Rehab - PT No Smoking: If you smoke, Please STOP! Call for help. Follow-up with: Suad Tenorio ARNP [Credentialed Staff Provider] -
--- NOTE | 2018-06-30 12:15 | Discharge Plan ---
Discharge Plan Disposition: 01 Home, Self Care Condition: Stable Activity Restrictions: Activity as Tolerated Shower Restrictions: No Driving Restrictions: Yes (No resumption of driving until cleared by PCP) Instruction Topics: Rhabdomyolysis, Falls Risks Prevent Additional Instructions or Follow Up instructions: You were admitted due to lethargy and weakness from over-sedation leading to fr equent falls. You may not drive a vehicle or operate heavy machinery until cleared to do so by your doctor. The recently increased doses of [place], Resperdal and Propranolol added to the weakness and lethargy, along with Naltrexone and Clonazepam medication use. You should see your mental health provider JULIO, to adjust the doses of those meds. Please resume the lower dose of [place] and Resperdal and Propranolol that you were on BEFORE they were increased. The frequent falls that you had led to a condition called Rhabdomyolysis, which is a breakdown of muscle from the trauma. You had a mild form. Please drink plenty of fluids to help your kidneys continue to clear out the muscle breakdown products. Please see your PCP in 5-7 days in follow-up and to determine if you need outpatient Physical Therapy. A walker was provided for you to use as of this admission. Return to the ER if you have new or worsening symptoms. No Smoking: If you smoke, Please STOP! Call for help. Follow-up with: Suad Tenorio ARNP [Credentialed Staff Provider] -
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
== END 2018-06-30 12:50 | disposition home or self-care (01) | DRG 558 ==
LOC: EDUNIT# → ED 15:34 → MS2 18:13 → OBSVTOIN 06-29 16:22
PROVIDERS: ADMIT Internal Medicine; ATTEND Internal Medicine
DX: R26.89 Other abnormalities of gait and mobility (principal); R53.1 Weakness; R53.83 Other fatigue; R11.0 Nausea; R10.9 Unspecified abdominal pain; R10.817 Generalized abdominal tenderness; E87.6 Hypokalemia; M62.82 Rhabdomyolysis; R40.0 Somnolence; R29.6 Repeated falls; G40.909 Epilepsy, unspecified, not intractable, without status epilepticus; F10.10 Alcohol abuse, uncomplicated; F19.10 Other psychoactive substance abuse, uncomplicated; F41.9 Anxiety disorder, unspecified; T43.595A Adverse effect of other antipsychotics and neuroleptics, initial encounter; F06.30 Mood disorder due to known physiological condition, unspecified; T44.7X5A Adverse effect of beta-adrenoreceptor antagonists, initial encounter; F17.210 Nicotine dependence, cigarettes, uncomplicated; M62.838 Other muscle spasm; M54.2 Cervicalgia; Y92.009 Unspecified place in unspecified non-institutional (private) residence as the place of occurrence of the external cause; T40.605A Adverse effect of unspecified narcotics, initial encounter; Z90.49 Acquired absence of other specified parts of digestive tract; S16.9XXA Unspecified injury of muscle, fascia and tendon at neck level, initial encounter; W19.XXXA Unspecified fall, initial encounter; F31.78 Bipolar disorder, in full remission, most recent episode mixed; F43.10 Post-traumatic stress disorder, unspecified; F90.9 Attention-deficit hyperactivity disorder, unspecified type; Z79.899 Other long term (current) drug therapy; Z91.81 History of falling
CPT/HCPCS: 36415; 80053; 80178; 80306; 80307; 80320; 80329; 81001; 81003; 81025; 82550; 83605; 83690; 83735; 84100; 84443; 85025; 87086; 96360; 96361; 96372; 96374; 96376; 99284

== ENCOUNTER 2020-09-15 16:32 | Outpatient (CLI) | payer MEDICARE, MEDICAID | END 2020-09-15 16:33 | disposition critical access hospital (66) | LOC: EMS 16:32 | PROVIDERS: ATTEND Surgery | DX: R56.9 Unspecified convulsions (principal) | CPT/HCPCS: A0425; A0427 ==

== ENCOUNTER 2020-09-15 16:53 | Emergency (ER) | payer MEDICARE, MEDICAID ==
[2020-09-15] MEDS ORDERED: SODIUM CHLORIDE 0.9% 1,000 ML IV STA (17:16)
[2020-09-15] MEDS ORDERED: HYDROmorphone 1 MG/ML CARPUJECT IVP STA (17:20)
--- NOTE | 2020-09-15 17:20 | ED Physician Documentation ---
History of Present Illness - Stated complaint Stated Complaint: SZ - Chief complaint Chief Complaint: Neuro - Additonal information Additional information: 35-year-old female with a history of a known seizure disorder presents to the emergency department via EMS after she had a seizure at home that was witnessed. She fell forward striking her head on the counter in the kitchen. She reports to me that her last seizure was about 3 months ago. She does take Keppra as well as Vimpat for seizure control. However she finds the Keppra pills to be too large and has tapered herself off over the last few weeks. She denies any fevers or drug use. No abdominal pain nausea or vomiting. She does have a very superficial laceration on her forehead just at the hairline that is not bleeding. She also has a large hematoma over her left eyebrow. Review of Systems Constitutional: reports: Reviewed and negative Eyes: reports: Reviewed and negative Ears: reports: Reviewed and negative Nose: reports: Reviewed and negative Throat: reports: Reviewed and negative Cardiac: reports: Reviewed and negative Respiratory: reports: Reviewed and negative GI: reports: Reviewed and negative : reports: Reviewed and negative Skin: reports: Abrasion (s) (left eye and forehead) Musculoskeletal: reports: Reviewed and negative Neurologic: reports: Seizure, Headache, Head injury. denies: Generalized weakness, Confused, Altered mental status Psychiatric: reports: Reviewed and negative PD PAST MEDICAL HISTORY - Past Medical History Past Medical History: Yes Cardiovascular: None Respiratory: None Neuro: Seizure disorder Endocrine/Autoimmune: None GI: None HR DIRECTOR: None : Kidney stones HEENT: None Psych: Anxiety, Bipolar disorder Musculoskeletal: None Derm: None - Past Surgical History Past Surgical History: Yes General: Cholecystectomy - Present Medications Home Medications: Ambulatory Orders Medication Instructions Recorded Confirmed Gabapentin 400 mg PO TID 06/28/18 06/29/18 Levetiracetam [Keppra] 750 mg PO BID 06/28/18 06/29/18 Naltrexone HCl 75 mg PO QPM 06/28/18 06/29/18 Propranolol [Inderal] 10 - 40 mg PO TID PRN 06/28/18 06/29/18 clonazePAM [Clonazepam] 2 mg PO DAILY 06/28/18 06/29/18 hydrOXYzine HCL [Hydroxyzine HCl] 10 - 50 mg PO TID PRN 06/28/18 06/29/18 Cetirizine [ZyrTEC] 10 mg PO DAILY 06/29/18 06/29/18 Hall Carbonate [Hall 900 mg PO QPM 06/29/18 06/29/18 Carbonate ER] Medroxyprogesterone Acetate 150 mg IM Q90D 06/29/18 06/29/18 [Depo-Provera] clonazePAM [Clonazepam] 1 mg PO 1700 06/29/18 06/29/18 risperiDONE [Risperdal] 2 mg PO DAILY 06/29/18 06/29/18 traMADol [Ultram] 50 mg PO BID PRN #10 tablet 09/15/20 - Allergies Allergies/Adverse Reactions: Allergies Allergy/AdvReac Type Severity Reaction Status Date / Time amitriptyline Allergy Hallucinati Verified 06/28/18 15:43 ons quetiapine [From Seroquel] Allergy Hallucinati Verified 06/28/18 15:43 ons Penicillins AdvReac Unknown Hives Verified 05/02/13 20:19 Sulfa (Sulfonamide AdvReac Unknown Hives Verified 05/02/13 20:19 Antibiotics) trazodone AdvReac Itching Verified 06/29/18 19:05 Whole grains AdvReac Unknown Uncoded 04/14/14 10:47 - Social History Does the pt smoke?: Yes Smoking Status: Current every day smoker Does the pt drink ETOH?: Yes Does the pt have substance abuse?: Yes - Immunizations Immunizations are current?: Yes Immunizations: TDAP current <10years - POLST Patient has POLST: No POLST Status: Full Code PD ED PE EXPANDED - General General: Alert, No acute distress, Well developed/nourished - HEENT HEENT: PERRL, EOMI, Ears normal, Moist mucous membranes, Pharynx normal. No: Atraumatic (Contusion and swelling above the left eyebrow. Very superficial abrasion of the forehead at the hairline.) - Neck Neck: Supple w/out meningeal sx, Soft tissue TTP. No: Adenopathy, Bony TTP, Limited ROM - Cardiac Cardiac: Regular Rate, Tachy, Radial strong equal, Pedal strong equal, Cap refill < 2 sec. No: Murmur Present - Respiratory Respiratory: Clear to ausultation [place]. No: Distress, Labored - Abdomen Abdomen: Normal Bowel sounds. No: Tender to palpation - Derm Derm: Normal color, Bruising (left eyebrow) - Neuro Neuro: Alert and Oriented X 3, CNII-XII intact, Normal speech - GCS Eye Opening: Spontaneous Motor: Obeys Commands Verbal: Oriented Total: 15 Results - Vitals Vitals: Vital Signs - 24 hr 09/15/20 09/15/20 09/15/20 17:00 18:05 19:17 Temperature 37.2 C 36.8 C Heart Rate 123 H 112 H 88 Respiratory 20 18 16 Rate Blood Pressure 160/106 H 135/85 H 149/100 H O2 Saturation 95 98 98 Oxygen O2 Source Room air - Labs Labs: Laboratory Tests 09/15/20 09/15/20 09/15/20 17:48 17:48 18:08 WBC 9.5 RBC 4.32 Hgb 11.2 L Hct 35.5 L MCV 82.2 MCH 25.9 L MCHC 31.5 L RDW 14.9 Plt Count 378 MPV 10.1 Neut # (Auto) 7.1 H Lymph # (Auto) 1.6 [place] # (Auto) 0.6 Eos # (Auto) 0.1 Baso # (Auto) 0.1 Absolute Nucleated RBC 0.00 Nucleated RBC % 0.0 Sodium 140 Potassium 4.0 Chloride 108 Carbon Dioxide 22 Anion Gap 10.0 BUN 7 Creatinine 0.8 Estimated GFR (MDRD) 81 L Glucose 124 H Calcium 9.1 Total Bilirubin 0.4 AST 167 H ALT 111 H Alkaline Phosphatase 86 Total Protein 7.1 Albumin 3.9 Globulin 3.2 Albumin/Globulin Ratio 1.2 Lipase 30 Serum HCG, Qual NEGATIVE Urine Color Urine Clarity Urine pH Ur Specific [place] Urine Protein Urine Glucose (UA) Urine Ketones Urine Occult Blood Urine Nitrite Urine Bilirubin Urine Urobilinogen Ur Leukocyte Esterase Ur Microscopic Review Urine Culture Comments 09/15/20 19:05 WBC RBC Hgb Hct MCV MCH MCHC RDW Plt Count MPV Neut # (Auto) Lymph # (Auto) [place] # (Auto) Eos # (Auto) Baso # (Auto) Absolute Nucleated RBC Nucleated RBC % Sodium Potassium Chloride Carbon Dioxide Anion Gap BUN Creatinine Estimated GFR (MDRD) Glucose Calcium Total Bilirubin AST ALT Alkaline Phosphatase Total Protein Albumin Globulin Albumin/Globulin Ratio Lipase Serum HCG, Qual Urine Color YELLOW Urine Clarity CLEAR Urine pH 5.5 Ur Specific [place] >=1.030 H Urine Protein NEGATIVE Urine Glucose (UA) NEGATIVE Urine Ketones NEGATIVE Urine Occult Blood NEGATIVE Urine Nitrite NEGATIVE Urine Bilirubin NEGATIVE Urine Urobilinogen 0.2 (NORMAL) Ur Leukocyte Esterase NEGATIVE Ur Microscopic Review NOT INDICATED Urine Culture Comments NOT INDICATED - Rads (name of study) CT head Radiology: Final report received (No acute intracranial abnormalities.) PD MEDICAL DECISION MAKING - ED course Complexity details: reviewed results, re-evaluated patient, considered differential, d/w patient ED course: 35-year-old female presents to the emergency department with an acute seizure that occurred this afternoon. She fell forward striking her head. She does have a contusion above her left eyebrow as well as an abrasion just above her hairline. She does have a known seizure disorder and takes Vimpat and Keppra. She over the last few weeks has been tapering off on the Keppra because the pills are difficult for her to take. A CT scan completed today did not show any acute intracranial abnormality. She has no focal neuro deficits. Most likely etiology of her seizure activity today was medication noncompliance. While here in the emergency department she has been alert and well-appearing. She does complain of a global headache. I suspect that she also likely has a concussive injury. Patient will be discharged home. She is encouraged to follow-up with both her neurologist and neuropsychiatrist. I will recommend ibuprofen for analgesia and headache. She is to resume taking the Keppra. I will also prescribe a very limited amount of tramadol. Patient is to return to the emergency department for recurrent seizures, fevers, uncontrolled vomiting or any other emergent concerns. Departure - Departure Disposition: 01 Home, Self Care Clinical Impression: Seizure, Seizure disorder, Non compliance w medication regimen, Forehead abrasion Contusion of left eyebrow Qualifiers: Encounter type: initial encounter Qualified Code(s): S00.12XA - Contusion of left eyelid and periocular area, initial encounter Condition: Stable Record reviewed to determine appropriate education?: Yes Prescriptions: traMADol [Ultram] 50 mg PO BID PRN #10 tablet PRN Reason: Pain Comments: The CT of your head did not show any worrisome findings. Your labs today are all essentially normal. The most likely cause of your seizure today is the fact that you stopped taking the Keppra as directed. It is important that you always take the Keppra and the Vimpat as directed by your neurologist. Please discuss with your neurologist if the formulation of Keppra can be changed to make it easier for you to swallow.
[2020-09-15] MEDS ORDERED: levETIRAcetam 100 MG/ML 473ML BOTTLE PO STA (17:23)
[2020-09-15] MEDS ORDERED: levETIRAcetam 500 MG/5 ML UDC PO SCH ×2 (17:35→21:00)
[2020-09-15 18:07] LABS: ALBUMIN 3.9 g/dL (3.2-5.5); ALBUMIN/GLOBULIN RATIO 1.2 (1.0-2.2); BILIRUBIN,TOTAL 0.4 mg/dL (0.2-1.0); CALCIUM 9.1 mg/dL (8.5-10.3); CREATININE 0.8 mg/dL (0.4-1.0); TOTAL PROTEIN 7.1 g/dL (6.7-8.2)
[2020-09-15 18:11] LABS: BASOPHILS # (AUTO) 0.1 10^3/uL (0.0-0.1); BASOPHILS % (AUTO) 0.6 %; EOSINOPHILS # (AUTO) 0.1 10^3/uL (0.0-0.7); EOSINOPHILS % (AUTO) 0.6 %; HGB - HEMOGLOBIN 11.2 g/dL (12.0-16.0); LYMPHOCYTES # (AUTO) 1.6 10^3/uL (1.5-3.5); LYMPHOCYTES % (AUTO) 17.2 %; MEAN CORPUSCULAR HEMOGLOBIN 25.9 pg (27.0-31.0); MEAN CORPUSCULAR HGB CONC 31.5 g/dL (32.0-36.0); MEAN CORPUSCULAR VOLUME 82.2 fL (81.0-99.0); MEAN PLATELET VOLUME 10.1 fL (7.9-10.8); MONOCYTES # (AUTO) 0.6 10^3/uL (0.0-1.0); MONOCYTES % (AUTO) 6.6 %; NEUTROPHILS # (AUTO) 7.1 10^3/uL (1.5-6.6); NEUTROPHILS % (AUTO) 74.7 %; PLT - PLATELET COUNT 378 10^3/uL (130-450); RED BLOOD COUNT 4.32 10^6/uL (4.20-5.40); RED CELL DISTRIBUTION WIDTH 14.9 % (12.0-15.0); WHITE BLOOD COUNT 9.5 x10^3/uL (4.8-10.8)
[2020-09-15 18:35] LABS: HCG,QUALITATIVE BLOOD NEGATIVE
--- NOTE | 2020-09-15 18:38 | CT Report ---
PROCEDURE: HEAD WO INDICATIONS: seizure; hematoma left eye, forehead TECHNIQUE: Noncontrast 4.5 mm thick angled axial sections acquired from the foramen magnum to the vertex. For r adiation dose reduction, the following was used: automated exposure control, adjustment of mA and/or kV according to patient size. COMPARISON: None. FINDINGS: Image quality: Excellent. CSF spaces: Basal cisterns are patent. No extra-axial fluid collections. Ventricles are normal in size and shape. Brain: No midline shift. No intracranial masses or hemorrhage. [place]-white matter interface is norm al. Skull and face: Calvarium and visualized facial bones are intact, without suspicious lesions. Left f rontal, periorbital soft tissue swelling. Sinuses: Visualized sinuses and mastoids are clear. IMPRESSION: No acute intracranial abnormalities. Reviewed by: Vaughn Bruno MD on 09/15/2020 6:37 PM PST Approved by: Vaughn Bruno MD on 09/15/2020 6:37 PM PST Station ID: [id number]
[2020-09-15 19:20] LABS: BILIRUBIN,URINE NEGATIVE (NEGATIVE); GLUCOSE, URINE (UA) NEGATIVE (NEGATIVE); KETONES,URINE (UA) NEGATIVE (NEGATIVE); LEUKOCYTE ESTERASE, URINE NEGATIVE (NEGATIVE); NITRITE,URINE NEGATIVE (NEGATIVE); OCCULT BLOOD,URINE NEGATIVE (NEGATIVE); PH,URINE 5.5 PH (5.0-7.5); PROTEIN,URINE NEGATIVE (NEGATIVE); UROBILINOGEN,URINE 0.2 (NORMAL) E.U./dL (NORMAL)
[2020-09-15 19:25] LABS: CLARITY,URINE CLEAR (CLEAR)
[2020-09-15 19:37] VITALS: BP 127/95
[2020-09-15] MEDS ORDERED: IBUPROFEN 600 MG TABLET PO STA (19:38)
--- NOTE | 2020-09-16 10:13 | ED Physician Documentation ---
ED Addendum - Addendum Addendum: 09/16/20 10:09 Got a call from [facility] pharmacy and the pharmacist concern was prescription for tramadol in the setting of seizure disorder. We will cancel the tramadol prescription and instead prescribe naproxen twice daily for a week 500 mg.
== END 2020-09-15 20:10 | disposition home or self-care (01) ==
LOC: EDUNIT# → ED 16:53
DX: S00.12XA Contusion of left eyelid and periocular area, initial encounter (principal); W22.09XA Striking against other stationary object, initial encounter; Y93.89 Activity, other specified; Y92.000 Kitchen of unspecified non-institutional (private) residence as the place of occurrence of the external cause; T42.6X6A Underdosing of other antiepileptic and sedative-hypnotic drugs, initial encounter; Z91.128 Patient's intentional underdosing of medication regimen for other reason; G40.909 Epilepsy, unspecified, not intractable, without status epilepticus; F17.200 Nicotine dependence, unspecified, uncomplicated
CPT/HCPCS: 36415; 70450; 80053; 81003; 83690; 84703; 85025; 96374; 99284; A9270; J1170; 81001; 87086

== ENCOUNTER 2021-06-06 08:00 | Outpatient (CLI) | payer MEDICARE, MEDICAID ==
[2021-06-06 22:28] LABS: BACTERIAL VAGINOSIS DNA NEGATIVE (NEGATIVE); CANDIDA GLABRATA DNA NEGATIVE (NEGATIVE); CANDIDA GROUP DNA POSITIVE (NEGATIVE); CANDIDA KRUSEI DNA NEGATIVE (NEGATIVE); TRICHOMONAS VAGINALIS DNA NEGATIVE (NEGATIVE)
== END 2021-06-06 23:59 | disposition home or self-care (01) ==
LOC: LAB.N 08:00
PROVIDERS: ATTEND Nurse Practitioner
DX: N30.00 Acute cystitis without hematuria (principal)
CPT/HCPCS: 87086; 87661; 87801

== ENCOUNTER 2021-08-16 08:28 | Outpatient (CLI) | payer MEDICAID | END 2021-08-16 08:29 | disposition E | LOC: EMS 08:28 ==